=== PATIENT | female | born 1980 | race Hispanic/Latino ===

== ENCOUNTER 2017-06-10 13:17 | Outpatient (CLI) | payer OTHER ==
--- NOTE | 2017-06-10 14:26 | RAD ---
FOUR VIEWS OF THE LEFT KNEE: Date: 06-10-17 Comparison: None. History: Left lateral knee pain. FINDINGS: There is no displaced fracture or evidence of dislocation. No knee joint effusion is seen. IMPRESSION: No acute findings. POS: LAY
== END 2017-06-10 13:18 | disposition home or self-care (01) ==
LOC: RAD 13:17
PROVIDERS: ATTEND Family Medicine
DX: M25.562 Pain in left knee (principal)

== ENCOUNTER 2019-10-02 05:36 | Outpatient (CLI) | payer OTHER ==
[2019-10-03 16:41] LABS: SARS-CoV-2 MS2 Positive; SARS-CoV-2 N Gene Negative; SARS-CoV-2 S Gene Negative; SARS-CoV-2 orf1ab Negative
== END 2019-10-02 05:37 | disposition home or self-care (01) ==
LOC: ERS 05:36
PROVIDERS: ATTEND Obstetrics & Gynecology
DX: Z01.812 Encounter for preprocedural laboratory examination (principal); Z11.59 Encounter for screening for other viral diseases
CPT/HCPCS: 87635; U0003

== ENCOUNTER 2019-10-04 05:29 | Inpatient (IN) | payer OTHER ==
[2019-10-04] MEDS ORDERED: Butorphanol Tartrate 1 MG/ML VIAL SLOW IVP PRN (05:41)
[2019-10-04] MEDS ORDERED: NS / Oxytocin 40 units/1000ml 1,000 ML IV PRN (05:41)
[2019-10-04] MEDS ORDERED: HYDROcodone/Acetaminophen 5/325 mg Tablet PO PRN ×4 (05:41→18:22)
[2019-10-04] MEDS ORDERED: NS w/ Oxytocin 10 units 500 ML IV SCH ×2 (05:41)
[2019-10-04] MEDS ORDERED: Ibuprofen 800 MG TAB PO PRN (05:41)
[2019-10-04] MEDS ORDERED: Promethazine HCl 25 MG/ML VIAL IM PRN ×2 (05:41→13:44)
[2019-10-04] MEDS ORDERED: hydrALAZINE 20 MG/ML VIAL SLOW IVP PRN ×2 (05:41→18:22)
[2019-10-04] MEDS ORDERED: Ondansetron PF 4 MG/2 ML Vial IVP PRN ×3 (05:41→18:22)
[2019-10-04] MEDS ORDERED: Lidocaine 1% (PF) 30 ML VIAL SC PRN (05:41)
[2019-10-04 05:50] VITALS: BMI 38.7
[2019-10-04] MEDS: Lactated Ringer's 1,000 ML IV SCH ×2 (06:03→13:56)
[2019-10-04 06:14] LABS: Hemoglobin 11.6 g/dL (12.0-16.0); Mean Corpuscular HGB CONC 33.8 g/dL (32.0-36.0); Mean Corpuscular Hemoglobin 29.7 pg (27.0-31.0); Mean Corpuscular Volume 87.9 fL (78.0-98.0); Mean Platelet Volume 8.6 fL (7.4-10.4); Platelet Count 167 thou/uL (130-400); RBC Distribution Width 12.8 % (11.5-14.5)
[2019-10-04 06:52] LABS: Syphilis Antibody Nonreactive (Nonreactive); Syphilis Antibody Index 0.03 S/CO (<1.00 Non-Reactive)
[2019-10-04 06:53] LABS: HBSAg Index 0.14 S/CO (0-0.99); Hep B Surf Ag Non-Reactive S/CO (NonReactive)
[2019-10-04] MEDS ORDERED: Bupivacaine 0.25% HCL 30 ML VIAL ONE (09:18)
--- NOTE | 2019-10-04 12:44 | PDOC.LDPN ---
Labor & Delivery Progress Note - Subjective Subjective: comfortable - Objective Vital signs reviewed and normal: yes General: breathing through contractions Dilation: 5 Effacement: 75% Station: -1 FHT: category 1 [place] contractions every: 2 AROM: clear fluid - Assessment (1) 39 weeks gestation of Code(s): Z3A.39 - 39 WEEKS GESTATION OF Current Visit: Yes Status : Acute (2) Gestational diabetes Code(s): O24.419 - GESTATIONAL DIABETES MELLITUS IN , UNSP CONTROL Current Visit: Yes Status: Acute Plan: continue plan of care
[2019-10-04] MEDS ORDERED: Fentanyl 4 mcg/Bup 0.1% Cadd 100 ML ONE (13:18)
[2019-10-04] MEDS ORDERED: Acetaminophen 325 MG TAB PO PRN (13:44)
[2019-10-04] MEDS ORDERED: Lactated Ringer's 500 ML IV PRN (13:44)
[2019-10-04] MEDS ORDERED: EPHEDRINE 25 MG/5 ML SYRINGE SLOW IVP PRN (13:44)
[2019-10-04] MEDS ORDERED: Naloxone HCl 0.4 mg/ml Vial IVP PRN ×2 (13:44)
[2019-10-04] MEDS ORDERED: diphenhydrAMINE 50 MG/ML VIAL IVP PRN (13:44)
[2019-10-04] MEDS ORDERED: Fentanyl 4 mcg/Bupivacaine 0.1% Cassette 100 ML EPIDURAL SCH (13:45)
[2019-10-04] MEDS ORDERED: Communication Order-Pharmacy FS SCH (13:45)
[2019-10-04] MEDS ORDERED: Fentanyl 100 MCG/2 ML VIAL ONE (14:47)
[2019-10-04] MEDS ORDERED: Misoprostol 200 MCG TAB ONE (16:00)
--- NOTE | 2019-10-04 17:12 | PDOC.OPDEL ---
OB Operative/Delivery Note Delivery Dr/Surgeon: Shantanu Pre-Delivery Diagnosis: medically indicated induction (AMA. GDM hyperparathyroid ) Procedure/Post Delivery Dx: spontaneous vaginal delivery Weeks gestation: 39 Anesthesia: epidural - Findings A Sex: male - 1 min: 8 - 5 min: 9 - Additional Findings/Plan Placenta delivered: spontaneous Estimated blood loss: 100ml Post delivery plan: routine recovery
[2019-10-04] MEDS ORDERED: Bisacodyl 10 MG SUPP PR PRN (18:22)
[2019-10-04] MEDS ORDERED: diphenhydrAMINE 25 MG CAP PO PRN (18:22)
[2019-10-04] MEDS ORDERED: Preparation H Ointment 28 GM TUBE PR PRN (18:22)
[2019-10-04] MEDS ORDERED: Lanolin Ointment 7 GM TUBE TOP PRN (18:22)
[2019-10-04] MEDS ORDERED: Milk Of Magnesia 30 ML UDCUP PO PRN (18:22)
[2019-10-04] MEDS ORDERED: Benzocaine-Menthol 82.5 ML CAN TOP PRN (18:22)
[2019-10-04] MEDS ORDERED: NS / Oxytocin 40 units/1000ml 1,000 ML IV SCH (18:22)
[2019-10-04] MEDS: Ibuprofen 800 MG TAB PO SCH (21:27)
[2019-10-04] MEDS: Docusate Calcium (SURFAK) 240 MG CAP PO SCH (21:43)
[2019-10-05] MEDS: Ibuprofen 800 MG TAB PO SCH ×3 (01:41→17:18)
[2019-10-05] MEDS: Ferrous Sulfate 325 MG TAB PO SCH ×2 (07:12→17:05)
[2019-10-05] MEDS ORDERED: Prenatal Vitamin 1 TAB PO SCH (09:00)
[2019-10-05] MEDS ORDERED: Adacel (T-DAP) 0.5 ML SYRINGE IM ONE (09:00)
[2019-10-05] MEDS: Docusate Calcium (SURFAK) 240 MG CAP PO SCH (09:21)
--- NOTE | 2019-10-05 10:16 | PDOC.PP ---
Post Progress Note Post Day #: 1 Subjective: doing well, no concerns, minimal lochia, breast and formula feeding PO intake tolerated: yes Flatus: yes Ambulation: yes Vital Signs (12 hours) Temp Pulse Resp BP Pulse Ox 10/05/19 07:48 99.0 F 77 20 95/52 L 97 10/05/19 04:30 98.2 F 71 18 104/58 L 98 10/05/19 00:10 98.5 F 83 18 113/51 L 83 L Weight Weight 205 lb - Physical Examination General: NAD Respiratory: non-labored breathing Abdominal: no distention Fundus firm & at: below umb Extremities: negative homans (B) Skin: no rash Neurological: no gross focal deficits Psychiatric: A&Ox3, normal affect Result Diagrams: 10/04/19 06:05 Additional Labs: Post Labs Blood Type B POSITIVE 10/04/19 06:05 Hep Bs Antigen Non-Reactive S/CO (NonReactive) 10/04/19 06:05 (1) 39 weeks gestation of Code(s): Z3A.39 - 39 WEEKS GESTATION OF Status: Acute (2) Gestational diabetes Code(s): O24.419 - GESTATIONAL DIABETES MELLITUS IN , UNSP CONTROL Status: Acute (3) Vaginal delivery Code(s): O80 - ENCOUNTER FOR FULL-TERM UNCOMPLICATED DELIVERY Status: Acute - Assessment/Plan PPD1 doing well, plan for DC today if baby DC. FU 6 week PP w diabetes screening.
[2019-10-05 11:53] VITALS: BP 121/60; TEMP 98.7
== END 2019-10-05 19:30 | disposition home or self-care (01) | DRG 807 ==
LOC: L&D 05:29 → 3SE 20:44 → EDSTATUS 10-11 10:03
PROVIDERS: ADMIT Obstetrics & Gynecology; ATTEND Obstetrics & Gynecology
PROC: 10907ZC Drainage of Amniotic Fluid, Therapeutic from Products of Conception, Via Natural or Artificial Opening (ICD-10-PCS; principal; 2019-10-04)
PROC: 10E0XZZ Delivery of Products of Conception, External Approach (ICD-10-PCS; 2019-10-04)
PROC: 3E033VJ Introduction of Other Hormone into Peripheral Vein, Percutaneous Approach (ICD-10-PCS; 2019-10-04)
DX: O99.284 Endocrine, nutritional and metabolic diseases complicating childbirth (principal); Z37.0 Single live birth; O24.420 Gestational diabetes mellitus in childbirth, diet controlled; E03.9 Hypothyroidism, unspecified; Z3A.39 39 weeks gestation of pregnancy
CPT/HCPCS: 36415; 36416; 51702; 85027; 86780; 86850; 86900; 86901; 87340; 87635; J2590; J3010; S0020; U0003

== ENCOUNTER 2022-01-03 09:46 | Outpatient (CLI) | payer OTHER | END 2022-01-03 09:47 | disposition home or self-care (01) | LOC: BICULT 09:46 | PROVIDERS: ATTEND Obstetrics & Gynecology | DX: N63.25 Unspecified lump in the left breast, overlapping quadrants (principal) ==

== ENCOUNTER 2022-07-10 08:40 | Outpatient (CLI) | payer OTHER | END 2022-07-10 08:41 | disposition home or self-care (01) | LOC: BICULT 08:40 | PROVIDERS: ATTEND Obstetrics & Gynecology | DX: N63.20 Unspecified lump in the left breast, unspecified quadrant (principal); N60.02 Solitary cyst of left breast ==

== ENCOUNTER 2023-10-31 12:32 | Outpatient (CLI) | payer OTHER | END 2023-10-31 12:33 | disposition home or self-care (01) | LOC: ULT 12:32 | PROVIDERS: ATTEND Psychiatry & Neurology Neurology | DX: R93.89 Abnormal findings on diagnostic imaging of other specified body structures (principal); I07.1 Rheumatic tricuspid insufficiency | CPT/HCPCS: 93306; 93880 ==

== ENCOUNTER 2023-11-04 12:31 | Outpatient (CLI) | payer OTHER | END 2023-11-04 12:32 | disposition home or self-care (01) | PROVIDERS: ATTEND Psychiatry & Neurology Neurology | DX: R93.89 Abnormal findings on diagnostic imaging of other specified body structures (principal) | CPT/HCPCS: 93225; 93226 ==